=== PATIENT | male | born 1960 | race Caucasian/White ===

== ENCOUNTER → 2024-03-29 08:34 | Outpatient (REF) | payer MEDICARE, SELFPAY | LOC: PAVMRI 08:34 | PROVIDERS: ATTENDING PHYSICIAN Specialist; FAMILY PHYSICIAN Family Medicine | DX: R97.20 Elevated prostate specific antigen [PSA] (principal) | CPT/HCPCS: 72197; A9575 ==

== ENCOUNTER 2024-04-17 06:25 | Day surgery (SDC) | payer MEDICARE, SELFPAY ==
[2024-04-05 11:08] LABS: Hematocrit 47.1 % (39.0-52.0); Mean Corpuscular Hgb 31.3 pg (27.0-31.0); Mean Corpuscular Volume 92.2 fL (80.0-94.0); Mean Platelet Volume 9.6 fL (7.4-10.4); Platelet Count 185 10^3/uL (130-400); Red Blood Cell Count 5.11 10^6/uL (4.70-6.10); Red Cell Dist. Width 11.5 % (11.5-14.5); White Blood Cell Count 8.6 10^3/uL (4.8-10.8)
[2024-04-05 11:23] LABS: Blood Urea Nitrogen 13 mg/dl (9-20); Calcium 9.6 mg/dl (8.4-10.2); Carbon Dioxide 30 mmol/L (22-30); Chloride 99 mmol/L (98-107); Glucose 196 mg/dl (70-99); Potassium 4.8 mmol/L (3.5-5.1); Sodium 139 mmol/L (135-145); eGFR > 60.00
[2024-04-05 11:47] VITALS: BMI 38.3
[2024-04-17] VITALS (11 sets, daily range): BP systolic 118–168; BP diastolic 66–92; BMI 38.3
[2024-04-17] MEDS: TYLENOL 1000 MG PO (09:17)
[2024-04-17] MEDS: NORMOSOL-R/PLASMALYTE-A 1000 IV (09:17)
[2024-04-17 09:21] LABS: Glucose - Point of Care 205 mg/dl (70-99)
[2024-04-17 12:11] LABS: Glucose - Point of Care 295 mg/dl (70-99)
[2024-04-17] MEDS: NOVOLOG vial 2 UNITS SC (12:15)
== END 2024-04-17 14:21 | disposition home or self-care (01) ==
LOC: SDS 06:25
PROVIDERS: ATTENDING PHYSICIAN Surgery; FAMILY PHYSICIAN Family Medicine
DX: K42.9 Umbilical hernia without obstruction or gangrene (principal); E11.9 Type 2 diabetes mellitus without complications; Z87.891 Personal history of nicotine dependence; Z86.718 Personal history of other venous thrombosis and embolism; Z79.01 Long term (current) use of anticoagulants
CPT/HCPCS: 49591; 36415; 71046; 80048; 82962; 85027; 93005; C1781